=== PATIENT | male | born 1995 | race Two or more races ===

== ENCOUNTER 2025-03-21 18:01 | Observation (INO) | payer BC ==
[2025-03-21 19:08] LABS: BASOPHILS ABSOLUTE AUTO 0.1 K/mm3 (0.0-0.2); BASOPHILS PERCENT AUTO 0.7 % (0.0-1.0); EOSINOPHILS ABSOLUTE AUTO 0.1 K/mm3 (0.0-0.4); EOSINOPHILS PERCENT AUTO 1.1 % (0.0-6.0); IMMATURE GRAN ABSOLUTE AUTO 0.11 K/mm3 (0.00-0.05); IMMATURE GRAN PERCENT AUTO 1.1 % (0.0-0.4); LYMPHOCYTES ABSOLUTE AUTO 2.5 K/mm3 (1.0-4.8); LYMPHOCYTES PERCENT AUTO 25.6 % (24.0-44.0); MEAN PLATELET VOLUME 8.3 fl (9.4-12.4); MONOCYTES ABSOLUTE AUTO 0.7 K/mm3 (0.0-0.8); MONOCYTES PERCENT AUTO 7.3 % (0.0-8.0); NEUTROPHILS ABSOLUTE AUTO 6.3 K/mm3 (1.8-7.7); NEUTROPHILS PERCENT AUTO 64.2 % (41.0-71.0); NRBC ABSOLUTE 0.00 (0.00-0.02); NRBC PERCENT 0.0 % (0.0-0.2); PLATELET COUNT,PLT 475 K/mm3 (150-400); RED BLOOD CELL COUNT 5.69 M/mm3 (4.52-5.90); WHITE BLOOD CELL COUNT,WBC 9.81 K/mm3 (3.9-11.3)
[2025-03-21] MEDS ORDERED: Sodium Chloride 0.9% 10 ML Syringe FLUSH PRN (19:16)
[2025-03-21] MEDS: Iopamidol 755 Mg/ML 100 ML Bottle IVPUSH ONE (19:29)
[2025-03-21] MEDS: Sodium Chloride 0.9% 10 ML Syringe FLUSH PRN (19:29)
[2025-03-21 19:33] LABS: LACTIC ACID 1.5 mmol/L (0.4-2.0)
[2025-03-21 19:39] LABS: A/G RATIO 1.1 (1-2); ALANINE AMINOTRANSFERASE,ALT 76.0 U/L (16-63); ASPARTATE AMNIOTRANSFERASE,AST 23.0 U/L (15-37); BILIRUBIN TOTAL 0.7 mg/dL (0.2-1.0); BLOOD UREA NITROGEN,BUN 18.0 mg/dL (7-18); CARBON DIOXIDE,CO2 24.0 mEq/L (21-32); CHLORIDE,CL 97.0 mEq/L (98-107); CREATININE 0.8 mg/dL (0.7-1.3); EST CRCL DRUG DOSING (CG) 139.41 mL/min; ESTIMATED GFR 122.0 mL/min (>60); GLUCOSE RANDOM 295.0 mg/dL (70-99); POTASSIUM,K 3.8 mEq/L (3.5-5.1); PROTEIN TOTAL,TP 8.3 g/dl (6.4-8.2); SODIUM,NA 134.0 mEq/L (136-145)
[2025-03-21] MEDS ORDERED: Ketorolac 30 MG/ML SDV IVPUSH PRN (21:14)
[2025-03-21] MEDS: Lactated Ringers 1,000 ML IV SCH (21:39)
[2025-03-21] MEDS: VANCOmycin 1.25 GM/250 ML 1.25 GM in Premix Bag 1 BAG IV SCH (23:50)
[2025-03-22] MEDS ORDERED: fentaNYL 100 MCG/2 ML SDV ONE (08:29)
[2025-03-22] MEDS ORDERED: Propofol 200 MG/20 ML SDV ONE ×2 (08:29→08:59)
[2025-03-22] MEDS ORDERED: Midazolam 1 MG/ML 2 ML SDV ONE (08:30)
[2025-03-22] MEDS ORDERED: Ondansetron 4 MG/2 ML SDV ONE (08:59)
[2025-03-22] MEDS ORDERED: Ketorolac 30 MG/ML SDV ONE (08:59)
[2025-03-22] MEDS ORDERED: Ondansetron 4 MG/2 ML SDV IVPUSH PRN (09:26)
[2025-03-22] MEDS ORDERED: fentaNYL 100 MCG/2 ML SDV IVPUSH PRN (09:26)
[2025-03-22] MEDS ORDERED: Lactated Ringers 1,000 ML IV SCH (09:30)
[2025-03-22] MEDS: Ketorolac 30 MG/ML SDV IVPUSH SCH (09:56)
== END 2025-03-22 15:00 | disposition home or self-care (01) ==
LOC: JD.ED 18:01 → JD.MS 21:08
PROVIDERS: ADMIT Surgery; ATTEND Surgery
DX: L02.215 Cutaneous abscess of perineum (principal)
CPT/HCPCS: 36415; 72193; 80053; 80202; 83605; 85025; 86140; 87040; 87070; 87075; 87205; 97597; 97598; J1885; J2250; J2405; J2543; J2704; J3010; J3375; J7120; Q9967; 99238; 99283